=== PATIENT | female | born 1990 | race Caucasian/White ===

== ENCOUNTER 2018-03-23 23:47 | Emergency (ER) | payer SELFPAY ==
[~2018-03-23] VITALS: Ht 167.6 cm; Wt 74.7 kg
[2018-03-24] MEDS ORDERED: SODIUM CHLORIDE 0.9% FLUSH 10 ML FLUSH IV FLUSH PRN
[2018-03-24] MEDS ORDERED: SODIUM CHLOR 0.9% 1000 ML INJ 1,000 ML IV ONE
[2018-03-24] MEDS ORDERED: ONDANSETRON HCL 4 MG/2 ML VIAL IVP ONE
[2018-03-24 00:02] VITALS: BP 121/59; PULSE 94; RESP 18; TEMP 98.4; O2SAT 98
--- NOTE | 2018-03-24 00:11 | PD ---
HPI Chief Complaint: Nausea vomiting diarrhea Time Seen by Provider: 23:50 Travel History International Travel<30 days: No Contact w/Intl Traveler<30days: No Traveled to known affect area: No History of Present Illness HPI Patient complains of nausea vomiting diarrhea onset since 1 PM today, per patient she has had no sick contacts. Patient denies any vaginal bleeding vaginal discharge or abdominal cramping pain. Patient states that she is 14 weeks this is her second . Patient is . Patient states that she has not had this nausea vomiting throughout her this just started today. There are no alleviating or aggravating factors. No known drug allergy No significant past medical or surgical history PFSH Social History Tobacco Use: No Allergies-Medications (Allergen,Severity, Reaction): Coded Allergies: No Known Allergies (Unverified , 03/23/18) Reported Meds & Prescriptions Reported Meds & Active Scripts Active Zofran Odt (Ondansetron Odt) 4 Mg Tab 4 Mg SL Q6HR PRN Review of Systems General / Constitutional: No: Fever Eyes: No: Visual changes HENT: No: Headaches Cardiovascular: No: Chest Pain or Discomfort Respiratory: No: Shortness of Breath Gastrointestinal: Positive: Nausea, Vomiting, Diarrhea Genitourinary: No: Dysuria Musculoskeletal: No: Pain Skin: No Rash Neurologic: No: Weakness Psychiatric: No: Depression Endocrine: No: Polydipsia Hematologic/Lymphatic: No: Easy Bruising Physical Exam Narrative GENERAL: SKIN: Warm and dry. HEAD: Atraumatic. Normocephalic. EYES: Pupils equal and round. No scleral icterus. No injection or drainage. ENT: No nasal bleeding or discharge. Mucous membranes pink and moist. NECK: Trachea midline. No JVD. CARDIOVASCULAR: Regular rate and rhythm. RESPIRATORY: No accessory muscle use. Clear to auscultation. Breath sounds equal bilaterally. GASTROINTESTINAL: Abdomen soft, non-tender, nondistended. MUSCULOSKELETAL: Extremities without clubbing, cyanosis, or edema. No obvious deformities. NEUROLOGICAL: Awake and alert. No obvious cranial nerve deficits. Motor grossly within normal limits. Five out of 5 muscle strength in the arms and legs. Normal speech. PSYCHIATRIC: Appropriate mood and affect; insight and judgment normal. Data Data Last Documented VS Vital Signs Date Time Temp Pulse Resp B/P (MAP) Pulse Ox O2 Delivery O2 Flow Rate FiO2 03/24/18 00:02 98.4 94 18 121/59 (79) 98 Orders Orders Complete Blood Count With Diff (03/23/18 23:50) Comprehensive Metabolic Panel (03/23/18 23:50) Lipase (03/23/18 23:50) Urinalysis - C+S If Indicated (03/23/18 23:50) Iv Access Insert/Monitor (03/23/18 23:50) Ecg Monitoring (03/23/18 23:50) Oximetry (03/23/18 23:50) NPO (03/23/18 23:50) Ondansetron Inj (Zofran Inj) (03/24/18 00:00) Sodium Chloride 0.9% Flush (Ns Flush) (03/24/18 00:00) Sodium Chlor 0.9% 1000 Ml Inj (Ns 1000 M (03/24/18 00:00) Labs Laboratory Tests Test 03/24/18 00:10 White Blood Count 10.9 TH/MM3 Red Blood Count 4.94 MIL/MM3 Hemoglobin 14.3 GM/DL Hematocrit 42.8 % Mean Corpuscular Volume 86.5 FL Mean Corpuscular Hemoglobin 29.0 PG Mean Corpuscular Hemoglobin Concent 33.5 % Red Cell Distribution Width 13.2 % Platelet Count 232 TH/MM3 Mean Platelet Volume 8.4 FL Neutrophils (%) (Auto) 81.9 % Lymphocytes (%) (Auto) 11.1 % Monocytes (%) (Auto) 3.2 % Eosinophils (%) (Auto) 0.2 % Basophils (%) (Auto) 3.6 % Neutrophils # (Auto) 9.0 TH/MM3 Lymphocytes # (Auto) 1.2 TH/MM3 Monocytes # (Auto) 0.3 TH/MM3 Eosinophils # (Auto) 0.0 TH/MM3 Basophils # (Auto) 0.4 TH/MM3 CBC Comment DIFF FINAL Differential Comment Urine Color YELLOW Urine Turbidity CLEAR Urine pH 5.5 Urine Specific [place] GREATER/EQUAL 1.030 Urine Protein 30 mg/dL Urine Glucose (UA) NEG mg/dL Urine Ketones 80 OR GREATER mg/dL Urine Occult Blood NEG Urine Nitrite NEG Urine Bilirubin NEG Urine Urobilinogen 0.2 MG/DL Urine Leukocyte Esterase NEG Urine RBC 0-2 /hpf Urine WBC 0-2 /hpf Urine Squamous Epithelial Cells > 8 /hpf Urine Bacteria OCC /hpf Microscopic Urinalysis Comment CULT NOT INDICATED Blood Urea Nitrogen 10 MG/DL Creatinine 0.55 MG/DL Random Glucose 91 MG/DL Total Protein 8.0 GM/DL Albumin 3.6 GM/DL Calcium Level 9.5 MG/DL Aspartate Amino Transf (AST/SGOT) 12 U/L Alanine Aminotransferase (ALT/SGPT) 19 U/L Total Bilirubin 0.7 MG/DL Sodium Level 137 MEQ/L Potassium Level 3.5 MEQ/L Chloride Level 106 MEQ/L Carbon Dioxide Level 22.4 MEQ/L Anion Gap 9 MEQ/L Estimat Glomerular Filtration Rate 132 ML/MIN Lipase 98 U/L [facility] Medical Decision Making Medical Screen Exam Complete: Yes Emergency Medical Condition: Yes Medical Record Reviewed: Yes Differential Diagnosis Viral gastroenteritis versus bacterial gastroenteritis versus pancreatitis versus hepatitis Narrative Course No leukocytosis, no anemia, normal platelet count, mild neutrophilia of 82%. UA shows ketonuria but without any evidence of UTI... This findings are consistent with dehydration secondary to nausea vomiting and diarrhea throughout the day. Electrolytes are all within normal limits, normal kidney liver and pancreatic functions. Patient is given IV fluids bolus as well as Zofran IV. Upon discharge patient was able to tolerate ice chips, was not actively nauseous nor vomiting. Diagnosis Primary Impression: Gastroenteritis Additional Impression: Dehydration Patient Instructions: Full Liquid Diet (GEN), Gastroenteritis (ED), General Instructions Scripts Ondansetron Odt (Zofran Odt) 4 Mg Tab 4 MG SL Q6HR Y for Nausea/Vomiting, #20 TAB 0 Refills Prov: Jesus Morales MD 03/24/18 Disposition: DISCHARGE HOME Condition: Stable Jesus Morales MD Mar 24, 2018 00:11
[2018-03-24 00:21] LABS: BLOOD, URINE NEG (NEG); GLUCOSE,URINE NEG (NEG); KETONE, URINE 80 OR GREATER mg/dL (NEG); NITRITE,URINE NEG (NEG); PH, URINE 5.5 (5.0-8.5); URINE COLOR YELLOW (YELLW/STRAW); URINE LEUKOCYTE ESTERASE NEG (NEG)
[2018-03-24 00:22] LABS: BASOPHIL # 0.4 TH/MM3 (0-0.2); BASOPHIL % 3.6 % (0.0-2.0); EOSINOPHIL % 0.2 % (0.0-4.0); HEMATOCRIT 42.8 % (35.0-46.0); HEMOGLOBIN 14.3 GM/DL (11.6-15.3); LYMPH % 11.1 % (9.0-44.0); LYMPHOCYTE # 1.2 TH/MM3 (1.0-4.8); MEAN CELL VOLUME 86.5 FL (80.0-100.0); MEAN CORPUSCULAR HGB CONC 33.5 % (32.0-36.0); MEAN PLATELET VOLUME 8.4 FL (7.0-11.0); MONO % 3.2 % (0.0-8.0); MONOCYTE # 0.3 TH/MM3 (0-0.9); NEUT % 81.9 % (16.0-70.0); PLATELET COUNT 232 TH/MM3 (150-450); RED BLOOD COUNT 4.94 MIL/MM3 (4.00-5.30); RED CELL DISTRIBUTION WIDTH 13.2 % (11.6-17.2); WHITE BLOOD COUNT 10.9 TH/MM3 (4.0-11.0)
[2018-03-24 00:26] LABS: BACTERIA, URINE OCC /hpf; BILIRUBIN, URINE NEG (NEG); RBC, URINE 0-2 /hpf (0-3); SQUAMOUS EPITHELIAL CELL URINE > 8 /hpf (0-5); WBC, URINE 0-2 /hpf (0-5)
[2018-03-24 00:29] LABS: CHLORIDE 106 MEQ/L (98-107); SODIUM (NA) 137 MEQ/L (136-145)
[2018-03-24 00:32] LABS: ALBUMIN 3.6 GM/DL (3.4-5.0); BICARBONATE 22.4 MEQ/L (21.0-32.0); CALCIUM 9.5 MG/DL (8.5-10.1)
[2018-03-24 00:33] LABS: BLOOD UREA NITROGEN 10 MG/DL (7-18); GLUCOSE,RANDOM 91 MG/DL (74-106)
[2018-03-24 00:35] LABS: ALT (GPT) 19 U/L (10-53); AST (GOT) 12 U/L (15-37)
[2018-03-24 00:36] LABS: CREATININE 0.55 MG/DL (0.50-1.00); GLOMERULAR FILTRATION RATE 132 ML/MIN (>89)
[2018-03-24] MEDS ORDERED: ZOFR4TAB3 SL (00:36)
[2018-03-24 00:37] LABS: TOTAL BILIRUBIN ADULT 0.7 MG/DL (0.2-1.0)
[2018-03-24 00:38] LABS: ALKALINE PHOSPHATASE 59 U/L (45-117)
[2018-03-24 01:07] VITALS: BP 121/72; TEMP 98.2
== END 2018-03-24 01:07 | disposition home or self-care (01) ==
LOC: PHED 23:47
DX: O99.611 Diseases of the digestive system complicating pregnancy, first trimester (principal); K52.9 Noninfective gastroenteritis and colitis, unspecified; O99.282 Endocrine, nutritional and metabolic diseases complicating pregnancy, second trimester; E86.0 Dehydration; Z3A.14 14 weeks gestation of pregnancy
CPT/HCPCS: 80053; 81001; 83690; 85025; 96361; 96374; 99284; J2405; J7030